=== PATIENT | female | born 1950 | race Caucasian/White ===

== ENCOUNTER 2022-05-13 06:25 | Emergency (ER) | payer MEDICARE, OTHER ==
[~2022-05-13 06:25] MED LIST: CLARITIN10 MG PO; MOBIC7.5 MG PO; VITAMIN B-121000 MC1 PO; VITAMIN D310 MC3 PO
[2022-05-13 07:04] LABS: BASOPHIL 1.2 % (0-2); EOSINOPHIL 2.7 % (0-7); LYMPHOCYTE 27.4 % (15-48); MCH 30.9 pg (25.0-31.0); MCHC 33.3 g/dL (32.0-36.0); MCV 92.7 fL (78.0-100.0); MONOCYTE 8.7 % (0-12); MPV 9.2 fL (6.0-9.5); NEUTROPHIL 59.7 % (41-80); NRBC 0; PLT 277 K/uL (150-400); RBC 4.53 M/uL (4.20-5.40); RDW 12.9 % (11.5-14.0); WBC 7.7 K/uL (4.0-10.5)
[2022-05-13 07:13] LABS: INR 0.98 (0.9-1.2); PROTHROMBIN TIME 12.7 SECONDS (11.9-13.9)
[2022-05-13 07:35] LABS: ALBUMIN 4.3 g/dL (3.4-5.0); BILIRUBIN - TOTAL 0.7 mg/dL (0.2-1.0); BUN/CREAT RATIO (CALC) 13.3 RATIO; CREATININE 0.9 mg/dL (0.51-0.95); MAGNESIUM 2.1 mg/dL (1.8-2.4); POTASSIUM 3.9 mmol/L (3.5-5.1); TOTAL PROTEIN 7.3 g/dL (6.4-8.2)
== END 2022-05-13 10:27 | disposition home or self-care (01) ==
LOC: FER 06:25
PROVIDERS: Emergency Medicine
DX: A09 Infectious gastroenteritis and colitis, unspecified (principal); Z88.2 Allergy status to sulfonamides
CPT/HCPCS: 36415; 80053; 83735; 85025; 85610; 86850; 86900; 86901; J1885; J2405; J7030; Q9967